=== PATIENT | male | born 1955 | race African-American/Black ===

== ENCOUNTER 2022-12-19 15:25 | Emergency (ER) | payer BC, MEDICAID ==
[~2022-12-19] VITALS: Ht 172.7 cm; Wt 69.0 kg
[2022-12-19 15:28] VITALS: O2SAT 99
[2022-12-19] MEDS ORDERED: SODIUM CHLORIDE 0.9% 500 ML IV ONE (15:45)
[2022-12-19 16:53] LABS: BASOPHILS % 0.3 % (0.0-2.0); EOSINOPHILS % 0.7 % (0.0-5.0); HEMATOCRIT. 46.2 % (42.0-52.0); HEMOGLOBIN. 15.6 g/dL (14.0-18.0); LYMPHOCYTES % 13.7 % (20.0-50.0); MEAN CORPUSCULAR HEMOGLOBIN 32.3 pg (28.0-32.0); MEAN CORPUSCULAR HGB CONC 33.8 g/dL (31.0-37.0); MEAN CORPUSCULAR VOLUME 95.6 fL (80.0-94.0); MEAN PLATELET VOLUME 8.9 fl (7.4-10.4); MONOCYTES % 10.1 % (2.0-8.0); NEUTROPHILS % 75.2 % (40.0-76.0); PLATELET 269 x1000/uL (130-400); RED BLOOD CELL COUNT 4.83 mill/uL (4.7-6.1); RED CELL DISTRIBUTION WIDTH 12.4 % (11.6-14.6); WHITE BLOOD COUNT 7.6 x1000/uL (4.5-11.0)
[2022-12-19 17:01] LABS: CHLORIDE 91 mEq/L (98-107); INDEX HEMOLYSI 1 (1-3); INDEX ICTERIC 1 (1-4); INDEX LIPEMIC 1 (1-3); POTASSIUM 3.5 mEq/L (3.5-5.1); SODIUM 129 mEq/L (136-145)
[2022-12-19 17:11] LABS: ALANINE AMINOTRANSFERASE 40 IU/L (13-61); ALBUMIN 4.2 g/dL (3.4-5.0); ASPARTATE AMINOTRANSFERASE 34 IU/L (15-37); BILIRUBIN TOTAL 0.6 mg/dL (0.1-1.0); CALCIUM 9.6 mg/dL (8.5-10.1); CARBON DIOXIDE 28 mEq/L (21-32); CREATININE 0.7 mg/dL (0.6-1.3); GLUCOSE 217 mg/dL (70-105); PROTEIN TOTAL 8.2 g/dL (6.0-8.3); TROPONIN I HIGH SENSITIVITY 27 ng/L (<78); UREA NITROGEN BLOOD 7 mg/dL (7-21)
[2022-12-19 17:19] LABS: LACTIC ACID 3.4 mmol/L (0.4-2.0)
[2022-12-19 19:48] LABS: TROPONIN I HIGH SENSITIVITY 31 ng/L (<78)
[2022-12-19 19:58] VITALS: BP 172/85; PULSE 83; RESP 18; TEMP 98.6
== END 2022-12-19 20:04 | disposition home or self-care (01) ==
LOC: ER 15:25
DX: E11.65 Type 2 diabetes mellitus with hyperglycemia (principal); E78.00 Pure hypercholesterolemia, unspecified; I10 Essential (primary) hypertension
CPT/HCPCS: 99284; 96360; 80053; 83605; 83735; 85025; 84484; 36415; 93005; J7030

== ENCOUNTER 2024-07-20 20:33 | Emergency (ER) | payer BC, MEDICAID ==
[~2024-07-20] VITALS: Ht 170.2 cm; Wt 80.0 kg
[2024-07-20 20:37] VITALS: TEMP 37.1; O2SAT 98
[2024-07-20 21:35] LABS: CARBON DIOXIDE 30 mEq/L (21-32); CHLORIDE 98 mEq/L (98-107); POTASSIUM 3.7 mEq/L (3.5-5.1); SODIUM 136 mEq/L (136-145)
[2024-07-20 21:36] LABS: CALCIUM 9.4 mg/dL (8.7-10.4)
[2024-07-20 21:40] LABS: CREATININE 0.9 mg/dL (0.6-1.3)
[2024-07-20 21:41] LABS: GLUCOSE 333 mg/dL (70-105); UREA NITROGEN BLOOD 8 mg/dL (9-23)
[2024-07-20 21:45] LABS: BETA HYDROXYBUTYRATE 0.3 mMol/L (0.0-0.3)
[2024-07-20 21:48] LABS: BASOPHILS % 0.3 % (0.0-2.0); EOSINOPHILS % 1.1 % (0.0-5.0); HEMATOCRIT. 44.8 % (42.0-52.0); HEMOGLOBIN. 15.1 g/dL (14.0-18.0); LYMPHOCYTES % 25.7 % (20.0-50.0); MEAN CORPUSCULAR HEMOGLOBIN 32.2 pg (28.0-32.0); MEAN CORPUSCULAR HGB CONC 33.7 g/dL (31.0-37.0); MEAN CORPUSCULAR VOLUME 95.6 fL (80.0-94.0); NEUTROPHILS % 64.9 % (40.0-76.0); RED BLOOD CELL COUNT 4.69 mill/uL (4.7-6.1); RED CELL DISTRIBUTION WIDTH 12.2 % (11.6-14.6); WHITE BLOOD COUNT 7.2 x1000/uL (4.5-11.0)
[2024-07-20 21:51] LABS: DIFFERENTIAL COMMENT 1
[2024-07-20 22:27] VITALS: BP 149/71; PULSE 78; RESP 18; O2SAT 99
[2024-07-20 22:28] LABS: MEAN PLATELET VOLUME 9.6 fl (7.4-10.4); PLATELET 227 x1000/uL (130-400)
== END 2024-07-20 22:30 | disposition home or self-care (01) ==
LOC: ER 20:33
DX: E11.65 Type 2 diabetes mellitus with hyperglycemia (principal); I10 Essential (primary) hypertension
CPT/HCPCS: 36415; 80048; 82010; 85025; 99283